=== PATIENT | male | born 1990 | race African-American/Black ===

== ENCOUNTER 2016-10-19 20:51 | Emergency (ER) | payer BC, OTHER ==
[~2016-10-19] VITALS: Ht 182.9 cm; Wt 68.0 kg
[2016-10-19 21:28] LABS: URINE BILIRUBIN NEGATIVE (Negative); URINE BLOOD 1+ (Negative); URINE COLOR YELLOW; URINE GLUCOSE-RANDOM* NEGATIVE (Negative); URINE KETONES NEGATIVE (Negative); URINE NITRITE NEGATIVE (Negative); URINE PROTEIN (DIPSTICK) NEGATIVE (Negative); URINE UROBILINOGEN 0.2 E.U./dl (0.2-1.0)
[2016-10-19 21:40] LABS: BACTERIA 1-9 Few /HPF (None Seen); CASTS None Seen /LPF (None Seen); CRYSTALS None Seen /LPF (None Seen); SQUAMOUS None Seen /LPF (0-3); URINE RBC 3-10 Few /HPF (0-2); URINE WBC >25 Many /HPF (0-5)
[2016-10-19] MEDS ORDERED: CIPRO500 MG PO (21:56)
[2016-10-19 22:02] VITALS: BP 139/72
== END 2016-10-19 22:02 | disposition home or self-care (01) ==
LOC: ER 20:51
PROVIDERS: Nurse Practitioner
DX: Z20.2 Contact with and (suspected) exposure to infections with a predominantly sexual mode of transmission (principal); N39.0 Urinary tract infection, site not specified; Z88.8 Allergy status to other drugs, medicaments and biological substances